=== PATIENT | female | born 1940 | race Two or more races ===

== ENCOUNTER 2017-06-05 09:16 | Emergency (ER) | payer OTHER ==
[2017-06-05 09:29] VITALS: BP 147/88; PULSE 86; RESP 20; TEMP 98.1; O2SAT 97
--- NOTE | 2017-06-05 10:00 | EDPHY ---
H & P Time Seen by Provider: 06/05/17 09:50 HPI/ROS: This patient complains of redness to her face with mild discomfort described as slight burning sensation after placing an unknown cosmetic cream on her face yesterday. She only applied the facial cream once and complains of increasing symptoms since that time. She did wash off of the cream with soapy water hr after the symptoms started. She has no other associated symptoms and came in by taxi for evaluation of her symptoms. She notes no other associated symptoms and no exacerbating factors. ROS: No fevers or chills. No other constitutional complaints. Integumentary: No rash on her body elsewhere besides her face. No mucous membrane complaints. HEENT: No URI symptoms or other complaints Pulmonary: No shortness of breath or wheeze. Cardiovascular: No complaints GI: No nausea or vomiting 7 point ROS is otherwise negative. Past Medical/Surgical History: Otherwise healthy Social History: Lives with her son who was out of town for the holidays. Smoking Status: Never smoked Physical Exam: Physical Exam Vital signs are normal. General: No acute distress HEENT: The patient has erythema to her face most probably over the chin and forehead without significant warmth to touch. There is no edema associated with this. Her lips are normal with no lesions. Ears are clear bilaterally. No nasal congestion oropharynx: No angioedema. No dysphonia. Eyes: Pupils equal and react to light. Extraocular motions are intact. No conjunctival injection Lungs: No respiratory distress. Cardiac: Brisk capillary refill is intact throughout. Skin: No rash or pallor. Neuro: Alert and oriented x3 with no sensorimotor deficits. Initial differential diagnosis: Contacts/allergic dermatitis, doubt cellulitis , doubt lupus Constitutional: Initial Vital Signs Temperature (C) 36.7 C 06/05/17 09:23 Heart Rate 86 06/05/17 09:23 Respiratory Rate 20 06/05/17 09:23 Blood Pressure 147/88 H 06/05/17 09:23 O2 Sat (%) 97 06/05/17 09:23 O2 Delivery Mode Room Air Allergies/Adverse Reactions: No Known Allergies Allergy (Unverified 06/05/17 09:29) Home Medications: Medication Instructions Recorded Aspirin 06/05/17 Hydrocortisone 0.5% 1 lila TP BID #15 g 06/05/17 [Hydrocortisone 0.5% cream (*)] MDM/Departure - MDM ED Course/Re-evaluation: Discussion: Patient appears well clinically with no fevers, warmth to touch or other findings that would suggest erysipelas or cellulitis. History and findings are most consistent with atopic dermatitis/allergic dermatitis. I counseled regarding this. Will plan to treat her with a low-dose hydrocortisone cream. - Depart Disposition: Home, Routine, Self-Care Clinical Impression: Allergic dermatitis Condition: Good Instructions: Dermatitis (ED) Additional Instructions: Diagnosis: Allergic dermatitis Plan: Avoid the cosmetic cream that caused this rash. Start the hydrocortisone cream and apply 2 times a day until the rash is resolved. Follow up with primary care physician for any ongoing symptoms Return emergency department for any significant worsening despite the treatment plan. Prescriptions: Hydrocortisone 0.5% [Hydrocortisone 0.5% cream (*)] 1 lila TP BID #15 g Referrals: NONE *PRIMARY CARE P,. [Primary Care Provider] - As per Instructions
== END 2017-06-05 10:08 | disposition home or self-care (01) ==
LOC: CED 09:16
DX: L23.9 Allergic contact dermatitis, unspecified cause (principal)

== ENCOUNTER 2017-12-09 11:52 | Emergency (ER) | payer OTHER ==
--- NOTE | 2017-12-09 12:30 | EDPHY ---
H & P Time Seen by Provider: 12/09/17 11:54 HPI/ROS: CHIEF COMPLAINT: Constipation HISTORY OF PRESENT ILLNESS: Patient is sent over from local urgent care clinic for evaluation for constipation. She did receive an x-ray at the clinic which showed no air-fluid levels. Per her son she recently went from independent living to assisted living yesterday and it was noted that yesterday she was complain of abdominal pain and constipation. She has had this before intermittently. This morning she had continue complaints and was taken in for evaluation. Patient with severe dementia but denies nausea or vomiting. No reports from [facility] about other symptoms. No fevers. REVIEW OF SYSTEMS: Constitutional: No fever, no chills. Eyes: No discharge. ENT: No sore throat. Cardiovascular: No chest pain, no palpitations. Respiratory: No cough, no shortness of breath. Gastrointestinal: Per HPI Genitourinary: No dysuria. Musculoskeletal: No back pain. Skin: No rashes. Neurological: No headache. General Appearance: Alert, no distress. Eyes: Pupils equal and round no pallor or injection. ENT, Mouth: Mucous membranes moist. Respiratory: There are no retractions, lungs are clear to auscultation. Cardiovascular: Regular rate and rhythm. Gastrointestinal: Abdomen is soft and nontender, no masses, bowel sounds normal. Neurological: Awake and alert but unable to answer any questions other than her name secondary to dementia. Her speech is understandable but her subject matter is nonsensical. Skin: Warm and dry, no rashes. Musculoskeletal: Neck is supple nontender. Extremities are symmetrical, full range of motion, no edema. Psychiatric: Patient pleasant and cooperative. Medical/surgical history: Dementia Social history: Moved from [place] to [place] last fall. Lives in assisted care facility. [facility]. Smoking Status: Former smoker Constitutional: Initial Vital Signs Temperature (C) 36.5 C 12/09/17 12:14 Heart Rate 78 12/09/17 12:14 Respiratory Rate 16 12/09/17 12:14 Blood Pressure 147/82 H 12/09/17 12:14 O2 Sat (%) 95 12/09/17 12:14 O2 Delivery Mode Room Air Allergies/Adverse Reactions: No Known Allergies Allergy (Verified 12/09/17 12:11) Medical Decision Making ED Course/Re-evaluation: Reviewed paperwork from [facility] urgent care. KUB done at the urgent care clinic shows constipation, no air-fluid levels or other signs of bowel obstruction. 1:30 p.m. patient received soapsuds enema with large amount of stool return. Feeling better. Differential Diagnosis: Differential diagnosis includes but is not limited to constipation, bowel obstruction, obstipation. Patient with a signs and symptoms of constipation relieved with soapsuds enema. No signs of acute abdomen, obstruction, peritonitis. Strongly recommended the initiation of daily stool softeners to prevent her somewhat chronic intermittent constipation. Stable for discharge. Departure - Departure Clinical Impression: Constipation Qualifiers: Constipation type: unspecified constipation type Qualified Code(s): K59.00 - Constipation, unspecified Condition: Good Instructions: Constipation (ED) Additional Instructions: Start using daily stool softeners like Colace or MiraLax or Metamucil to help avoid constipation. Other dietary changes may help as well- increased fruits and fiber. Stay well hydrated. Exercise is beneficial as well. Referrals: NONE *PRIMARY CARE P,. [Primary Care Provider] - As per Instructions
[2017-12-09 13:47] VITALS: BP 138/84
== END 2017-12-09 13:44 | disposition home or self-care (01) ==
LOC: CED 11:52
DX: K59.00 Constipation, unspecified (principal); Z87.891 Personal history of nicotine dependence